=== PATIENT | female | born 1975 | race Caucasian/White ===

== ENCOUNTER 2020-05-04 06:45 | Outpatient (CLI) | payer OTHER ==
--- NOTE | 2020-05-07 20:53 | EKG ---
Test Reason : EKG Blood Pressure : / mmHG Vent. Rate : 077 BPM Atrial Rate : 077 BPM P-R Int : 120 ms QRS Dur : 076 ms QT Int : 390 ms P-R-T Axes : 069 078 067 degrees QTc Int : 441 ms Normal sinus rhythm Normal ECG No previous ECGs available Confirmed by Addie SAWYER ([id number]) on 05/07/2020 8:53:21 PM Referred By: KRISTEN Confirmed By:Addie SAWYER
== END 2020-05-04 06:46 | disposition home or self-care (01) ==
LOC: LABBT 06:45
PROVIDERS: ATTEND Urology
DX: Z01.818 Encounter for other preprocedural examination (principal); N20.0 Calculus of kidney
CPT/HCPCS: 80048; 81001; 85027; 85610; 85730; 86850; 86900; 86901; 87086; 87635; 93005; 93010; U0003

== ENCOUNTER 2020-05-09 08:32 | Day surgery (SDC) | payer OTHER ==
[2020-05-04 12:44] LABS: Bilirubin Neg (Negative); Blood, Urine 250 (Negative); Glucose, Urine (Dipstick) Normal (Negative); Ketone, Urine Negative (Negative); Leukocyte 25 (Negative); Nitrite Negative (Negative); Protein, Urine (Dipstick) 100 mg/dl (Neg-Trace); Specific Gravity, Urine 1.025 (1.002-1.036); Urobilinogen Normal mg/dL (Less than 2)
[2020-05-04 12:46] LABS: Clarity Hazy (Clear)
[2020-05-04 13:05] LABS: RBC/HPF 21-50 HPF (0-3)
[2020-05-04 13:06] LABS: Bacteria/HPF 3+ HPF (None Seen)
[2020-05-04 15:08] LABS: Hemoglobin 12.8 g/dL (12.0-16.0); Mean Corpuscular HGB CONC 33.7 G/DL (32.0-36.0); Mean Corpuscular Hemoglobin 31.6 PG (27.0-33.0); Mean Corpuscular Volume 93.8 fl (80.0-100.0); Mean Platelet Volume 10.6 fl (7.4-10.4); Platelet Count 338 10x3/uL (130-400); Red Blood Cell (RBC) Count 4.05 10x6/uL (3.90-5.20); White Blood Cell (WBC) Count 8.3 10x3/uL (4.5-11.0)
[2020-05-04 15:27] LABS: Anion Gap 13 mmol/L (10-20); BUN (Urea Nitrogen) 19 mg/dL (7.0-18.7); Calc. Creatinine Clearance 0 mL/min (70-130); Calcium 8.5 mg/dL (7.8-10.44); Carbon Dioxide 24 mmol/L (22-29); Chloride 106 mmol/L (98-107); Estimated GFR-MDRD 61; Glucose 70 mg/dL (70-105); Potassium 3.8 mmol/L (3.5-5.1); Sodium 139 mmol/L (136-145)
[2020-05-04 15:28] LABS: PTT 27.6 sec (22.0-33.0); Prothrombin Time 10.3 sec (9.5-12.1)
[2020-05-05 15:01] LABS: SARS-CoV-2 MS2 Positive; SARS-CoV-2 N Gene Negative; SARS-CoV-2 S Gene Negative; SARS-CoV-2 by NAA Not Detected (NotDetected); SARS-CoV-2 orf1ab Negative
[2020-05-08 12:28] VITALS: BMI 21.0
[2020-05-09] MEDS ORDERED: Fentanyl 100 MCG/2 ML VIAL ONE ×3 (09:48→14:01)
[2020-05-09] MEDS ORDERED: Ondansetron PF 4 MG/2 ML Vial ONE (10:40)
[2020-05-09] MEDS ORDERED: PROPOFOL 200 MG/20 ML VIAL ONE (10:40)
[2020-05-09] MEDS ORDERED: Dexamethasone 20 MG/5 ML VIAL ONE (10:40)
[2020-05-09] MEDS ORDERED: Lidocaine 1% PF 5 ML VIAL ONE (10:40)
[2020-05-09] MEDS ORDERED: Iothalamate Meglumine 60% 50 ML VIAL FS ONE (12:14)
[2020-05-09] MEDS ORDERED: HYDROmorphone 2 MG/ML VIAL SLOW IVP PRN (13:33)
[2020-05-09] MEDS ORDERED: Ketorolac Tromethamine 30 MG/ML VIAL IVP PRN (13:33)
[2020-05-09] MEDS ORDERED: Ondansetron HCl/PF 4 MG/2 ML Vial IVP PRN (13:33)
[2020-05-09] MEDS ORDERED: Promethazine HCl 25 MG/ML VIAL IM PRN (13:33)
[2020-05-09] MEDS ORDERED: Morphine Sulfate 2 MG/ML SYRINGE SLOW IVP PRN (13:33)
[2020-05-09] MEDS ORDERED: Meperidine HCl/PF 25 MG/ML VIAL SLOW IVP PRN (13:33)
[2020-05-09] MEDS ORDERED: PACU-Morphine 4MG/ML VIAL SLOW IVP PRN (13:33)
[2020-05-09] MEDS ORDERED: Promethazine HCl 25 MG/ML VIAL SLOW IVP PRN (13:33)
[2020-05-09] MEDS ORDERED: Ketorolac Tromethamine 30 MG/ML VIAL ONE (13:38)
[2020-05-09] MEDS ORDERED: Oxybutynin 5 MG TAB ONE (13:39)
--- NOTE | 2020-05-09 13:56 | RAD ---
EXAM: Retrograde IVP HISTORY: Kidney stones COMPARISON: None FINDINGS/IMPRESSION: A single limited intraoperative fluoroscopic view of the retrograde IVP was subm itted for interpretation. There is a left-sided ureteral stent that appears in good position. Contrast is seen in the left kidney. There is no evidence of hydronephrosis. No obvious filling defec ts are seen.
--- NOTE | 2020-05-09 18:11 | OP ---
DATE OF PROCEDURE: 05/09/2020 PREOPERATIVE DIAGNOSIS: Left renal stone. POSTOPERATIVE DIAGNOSIS: Left renal stone. PROCEDURES PERFORMED: Left ureteroscopy with laser lithotripsy, basket extraction of stone, retrograde pyelogram, intraoperative interpretation of radiologic imaging, 6 x 22 double-J ureteral stent placement. ANESTHESIA: General. COMPLICATIONS: None. BLOOD LOSS: None. SPECIMEN: Left stone fragments. DESCRIPTION OF PROCEDURE: After informed consent, the patient was taken to the operating room, transferred to the table on her own power. Anesthesia was established. A time-out was performed ensuring correct patient, site, and procedure. Preoperative antibiotics were administered. She was prepped and draped in the lithotomy position. The rigid cystoscope was advanced through the urethra into the bladder. The bladder was systematically examined, noting no mucosal abnormalities. The left ureter was cannulated with a wire, which was passed up to the level of the renal pelvis. A large stone was noted in the renal pelvis under fluoroscopy. An access sheath was then placed over the wire into the proximal ureter under fluoroscopic guidance. A retrograde pyelogram was performed through this, showing good filling of the renal pelvis. The flexible ureteroscope was then passed through the access sheath into the renal pelvis, where the stone was quickly encountered. The stone was treated with a 273 micron laser fiber and fragmented into very small pieces. The Nitinol basket was used to retrieve all clinically significant stone fragments. The renal pelvis was then systematically examined, noting no clinically significant stone fragments. The pelvis was then filled with contrast and a wire placed before removing the access sheath and scope. A 6 x 22 double-J ureteral stent was passed over the wire with a curl in the upper pole of the kidney and a curl in the bladder under fluoroscopic guidance. The bladder was then drained. The patient was awoken from anesthesia, transferred back to her hospital bed, and taken to PACU in stable condition, where she will discharge home upon recovery, to return in 2 weeks for stent removal. Job ID: [id number]
== END 2020-05-09 15:20 | disposition home or self-care (01) ==
LOC: SDC 08:32
PROVIDERS: ATTEND Urology
PROC: 0T778DZ Dilation of Left Ureter with Intraluminal Device, Via Natural or Artificial Opening Endoscopic (ICD-10-PCS; principal; 2020-05-09)
PROC: 0TC48ZZ Extirpation of Matter from Left Kidney Pelvis, Via Natural or Artificial Opening Endoscopic (ICD-10-PCS; principal; 2020-05-09)
DX: N20.0 Calculus of kidney (principal); F98.8 Other specified behavioral and emotional disorders with onset usually occurring in childhood and adolescence; F32.9 Major depressive disorder, single episode, unspecified; Z79.899 Other long term (current) drug therapy; Z91.018 Allergy to other foods; Z91.040 Latex allergy status
CPT/HCPCS: 74420; 80048; 81001; 82365; 85027; 85610; 85730; 86850; 86900; 86901; 87086; 87635; 88300; J0690; J1100; J1885; J2405; J2704; J3010; U0003

== ENCOUNTER 2022-01-10 10:35 | Outpatient (CLI) | payer BC | END 2022-01-10 10:36 | disposition home or self-care (01) | LOC: BICMAMMO 10:35 | PROVIDERS: ATTEND Obstetrics & Gynecology | DX: Z12.31 Encounter for screening mammogram for malignant neoplasm of breast (principal) | CPT/HCPCS: 77063; 77067 ==